=== PATIENT | female | born 1960 | race Hispanic/Latino ===

== ENCOUNTER 2020-04-18 19:45 | Emergency (ER) | payer MEDICARE ==
[2020-04-18 21:15] VITALS: BP 145/93
[2020-04-18 21:39] LABS: Basophils # (Auto) 0.1 K/mm3 (0.0-0.1); Basophils % (Auto) 1.5 % (0.0-1.8); Eosinophils # (Auto) 0.1 K/mm3 (0.0-0.4); Eosinophils % (Auto) 1.7 % (0.0-4.3); Hematocrit 40.1 % (30.3-42.9); Hemoglobin 13.5 gm/dl (10.1-14.3); Lymphocytes # (Auto) 2.3 K/mm3 (1.2-5.4); Mean Corpuscular HGB Conc 34 % (30-34); Mean Corpuscular Volume 78 fl (79-97); Monocytes # (Auto) 0.4 K/mm3 (0.0-0.8); Monocytes % (Auto) 5.8 % (0.0-7.3); Platelet Count 296 K/mm3 (140-440); Red Blood Count 5.14 M/mm3 (3.65-5.03); Red Cell Distribution Width 15.8 % (13.2-15.2)
--- NOTE | 2020-04-18 22:00 | Emergency Department Report ---
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 Patient states that the blurriness has been persistent but intermittent since onset. Patient states that her family were concerned and decided to bring her to the ED for evaluation suspecting that she may be developing another aneurysm and stroke. Patient denies headache, right eye vision loss, dizziness, nausea and vomiting, neck pain, chest pain, shortness of breath, traumatic injury, fever, chills, cough, sore throat, nasal and sinus congestion or numbness and tingling or weakness of upper and lower extremities bilaterally. MD chief complaint: vision change (Blurry right eye) -: Sudden, hour(s) (12) Onset Description: sudden Location: right eye Place: home If Injury: none Eye Symptoms: blurry vision (right) Severity: mild Severity scale (0 -10): 0 Consistency: constant Associated Symptoms: none Treatments Prior to Arrival: none - Related Data Patient Tetanus UTD: Yes Home Medications Medication Instructions Recorded Confirmed Last Taken Gabapentin 300 mg PO TID 06/02/19 06/02/19 Unknown hydroCHLOROthiazide [HCTZ] 25 mg PO QDAY 06/02/19 06/02/19 Unknown Previous Rx's Medication Instructions Recorded Last Taken Type Aspirin EC [Halfprin EC] 81 mg PO QDAY #30 tablet 06/04/19 Unknown Rx AtorvaSTATin [Lipitor] 40 mg PO QHS #30 tablet 06/04/19 Unknown Rx Butalb/Acetamin/Caff 50-325-40 1 tab PO BID PRN #30 tablet 06/04/19 Unknown Rx [Fioricet 50-325-40] levETIRAcetam [Keppra TAB] 500 mg PO BID #60 tablet 06/04/19 Unknown Rx Allergies Allergy/AdvReac Type Severity Reaction Status Date / Time NSAIDS (Non-Steroidal Allergy Bleeding Verified 12/24/14 11:41 Anti-Inflamma Penicillins Allergy Rash Verified 12/24/14 11:41 pregabalin [From Lyrica] Allergy Unknown Verified 12/24/14 11:41 ED Review of Systems ROS: Stated complaint: LOSS OF VISION IN RT EYE Other details as noted in HPI Constitutional: denies: chills, fever Eyes: vision change (Blurry right eye). denies: eye pain, eye discharge ENT: denies: ear pain, throat pain Respiratory: denies: cough, shortness of breath, SOB with exertion, SOB at rest, wheezing Cardiovascular: denies: chest pain, palpitations, edema, syncope, paroxysmal nocturnal dyspnea Endocrine: no symptoms reported Gastrointestinal: denies: abdominal pain, nausea, vomiting, diarrhea Genitourinary: denies: urgency, dysuria, discharge Musculoskeletal: denies: back pain, joint swelling, arthralgia Skin: denies: rash, lesions Neurological: denies: headache, weakness, numbness, paresthesias, confusion, abnormal gait, vertigo Psychiatric: denies: anxiety, depression Hematological/Lymphatic: denies: easy bleeding, easy bruising ED Past Medical Hx - Past Medical History Hx Hypertension: Yes Hx CVA: Yes Hx Arthritis: Yes Hx COPD: Yes Additional medical history: Congenital right arm deformity at the elbow. SCIATICA, pleursy. brain aneursym. Blind Left eye - Surgical History Past Surgical History?: Yes Additional Surgical History: tonsillectomy, x 2, hysterectomy, stomach tumor removed 2000. 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 - Social History Smoking Status: Former Smoker - Medications Home Medications: Home Medications Medication Instructions Recorded Confirmed Last Taken Type Gabapentin 300 mg PO TID 06/02/19 06/02/19 Unknown History hydroCHLOROthiazide [HCTZ] 25 mg PO QDAY 06/02/19 06/02/19 Unknown History Aspirin EC [Halfprin EC] 81 mg PO QDAY #30 tablet 06/04/19 Unknown Rx AtorvaSTATin [Lipitor] 40 mg PO QHS #30 tablet 06/04/19 Unknown Rx Butalb/Acetamin/Caff 50-325-40 1 tab PO BID PRN #30 tablet 06/04/19 Unknown Rx [Fioricet 50-325-40] levETIRAcetam [Keppra TAB] 500 mg PO BID #60 tablet 06/04/19 Unknown Rx ED Physical Exam - General Limitations: No Limitations General appearance: alert, in no apparent distress - Head Head exam: Present: atraumatic, normocephalic, normal inspection - Eye Eye exam: Present: normal appearance, PERRL, EOMI, other (Baseline left eye blindness). Absent: scleral icterus, conjunctival injection, nystagmus, periorbital tenderness Pupils: Present: normal accommodation - ENT ENT exam: Present: normal exam, normal orophraynx, mucous membranes moist, normal external ear exam. Absent: TM's normal bilaterally - Neck Neck exam: Present: normal inspection, full ROM - Respiratory Respiratory exam: Present: normal lung sounds bilaterally. Absent: respiratory distress, wheezes, rales, rhonchi, chest wall tenderness, accessory muscle use, decreased breath sounds - Cardiovascular Cardiovascular Exam: Present: regular rate, normal rhythm, normal heart sounds. Absent: systolic murmur, diastolic murmur, rubs, gallop - GI/Abdominal GI/Abdominal exam: Present: soft, normal bowel sounds. Absent: distended, tenderness, hyperactive bowel sounds, hypoactive bowel sounds - Extremities Exam Extremities exam: Present: normal inspection, full ROM, normal capillary refill, other (Baseline congenital vestigial right arm deformity at the elbow) - Back Exam Back exam: Present: normal inspection, full ROM. Absent: tenderness, CVA tenderness (R), CVA tenderness (L), muscle spasm, paraspinal tenderness, vertebral tenderness - Neurological Exam Neurological exam: Present: alert, oriented X3, CN II-XII intact, normal gait, reflexes normal - Psychiatric Psychiatric exam: Present: normal affect, normal mood - Skin Skin exam: Present: warm, dry, intact, normal color. Absent: rash ED Course Vital Signs 04/18/20 21:13 Temperature 98.9 F Pulse Rate 80 Respiratory 16 Rate Blood Pressure 145/93 O2 Sat by Pulse 97 Oximetry ED Medical Decision Making - Lab Data Result diagrams: 04/18/20 21:24 04/18/20 21:24 - Radiology Data [facility] [address] [place] [address] Cat Scan Report Signed Patient: ROGER MCINTOSH MR#: [id number] 28 : 1960 Acct:[id number] Age/Sex: 59 / F ADM Date: 04/18/20 Loc: ED Attending Dr: Ordering Physician: JUAN MARCUS Date of Service: 04/18/20 Procedure(s): CT head/brain wo con Accession Number(s): [id number] cc: JUAN MARCUS CT HEAD WITHOUT CONTRAST INDICATION / CLINICAL INFORMATION: Blurry vision, right eye. TECHNIQUE: All CT scans at this location are performed using CT dose reduction for ALARA by means of automated exposure control. COMPARISON: CT brain dated 06/02/2019. FINDINGS: HEMORRHAGE: None. EXTRA-AXIAL SPACES: Normal in size and morphology for the patient's age. VENTRICULAR SYSTEM: Normal in size and morphology for the patient's age. CEREBRAL PARENCHYMA: Regions of encephalomalacia within the left frontal and right occipital lobe are again seen. There is ex vacuo dilation of the lateral ventricles. Small chronic lacunar type infarct of the right basal ganglia is again seen. No acute territorial infarct. MIDLINE SHIFT OR HERNIATION: None. CEREBELLUM / BRAINSTEM: No significant abnormality. ORBITS: Normal as visualized. SOFT TISSUES of HEAD: No significant abnormality. CALVARIUM: No significant abnormality. PARANASAL SINUSES / MASTOID AIR CELLS: Normal as visualized. ADDITIONAL FINDINGS: Aneurysm coils are again seen. IMPRESSION: 1. No acute intracranial abnormality. 2. Encephalomalacia within the left frontal lobe, right occipital lobe, and right basal ganglia are compatible with chronic infarcts. 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 Patient states that the blurriness has been persistent but intermittent since onset. Patient states that her family were concerned and decided to bring her to the ED for evaluation suspecting that she may be developing another aneurysm and stroke. In the ED, patient is alert and oriented x3 and is not in distress. Lab test results were reviewed and are all nonactionable. Head CT scan without contrast showed no acute intracranial abnormality. It however showed encephalomalacia within the left frontal lobe, right occipital lobe, and right basal ganglia are compatible with chronic infarcts. Patient was therefore discharged home and advised to follow-up with her primary care physician and was also given a referral to the neurologist Dr. Ye for follow-up and evaluation. Patient was advised return to the ED immediately if symptoms get worse. - Differential Diagnosis Blurry vision, CVA, dizziness, dehydration, [place] Critical care attestation.: If time is entered above; I have spent that time in minutes in the direct care of this critically ill patient, excluding procedure time. ED Disposition Clinical Impression: Blurred vision, right eye Disposition: DC-01 TO HOME OR SELFCARE Is pt being admited?: No Does the pt Need Aspirin: No Condition: Stable Instructions: Blurred Vision, Adult Additional Instructions: THE HEAD CT SCAN W/O CONTRAST SHOWED NO ACUTE INTRACRANIAL ABNORMALITIES OR HEMORRHAGE. THERE WAS NOTED CHRONIC CHANGES FROM PREVIOUS INFARCTS. THEREFORE FOLLOW UP WITH DR. YE, THE NEUROLOGIST IN 3-5 DAYS FOR REEVALUATION. RETURN TO THE ED IMMEDIATELY IF SYMPTOMS GET WORSE. Referrals: HUSSEIN YE MD [Referring] - 3-5 Days Time of Disposition: 23:44 Print Language: [place]
[2020-04-18 22:11] LABS: BUN/Creatinine Ratio 24; Blood Urea Nitrogen 22 mg/dL (7-17); Calcium 9.3 mg/dL (8.4-10.2); Hemolysis Index 7
--- NOTE | 2020-04-18 22:26 | Cat Scan Report ---
CT HEAD WITHOUT CONTRAST INDICATION / CLINICAL INFORMATION: Blurry vision, right eye. TECHNIQUE: All CT scans at this location are performed using CT dose reduction for ALARA by means of automated e xposure control. COMPARISON: CT brain dated 06/02/2019. FINDINGS: HEMORRHAGE: None. EXTRA-AXIAL SPACES: Normal in size and morphology for the patient's age. VENTRICULAR SYSTEM: Normal in size and morphology for the patient's age. CEREBRAL PARENCHYMA: Regions of encephalomalacia within the left frontal and right occipital lobe are again seen. There is ex vacuo dilation of the lateral ventricles. Small chronic lacunar type infarct of the right basal ganglia is again seen. No acute territorial infarct. MIDLINE SHIFT OR HERNIATION: None. CEREBELLUM / BRAINSTEM: No significant abnormality. ORBITS: Normal as visualized. SOFT TISSUES of HEAD: No significant abnormality. CALVARIUM: No significant abnormality. PARANASAL SINUSES / MASTOID AIR CELLS: Normal as visualized. ADDITIONAL FINDINGS: Aneurysm coils are again seen. IMPRESSION: 1. No acute intracranial abnormality. 2. Encephalomalacia within the left frontal lobe, right occipital lobe, and right basal ganglia are c ompatible with chronic infarcts. Signer Name: Ford Verduzco MD Signed: 04/18/2020 10:21 PM Workstation Name: [id number]
== END 2020-04-18 23:55 | disposition home or self-care (01) ==
LOC: ED 19:45
DX: H53.8 Other visual disturbances (principal); I10 Essential (primary) hypertension; M19.91 Primary osteoarthritis, unspecified site; J44.9 Chronic obstructive pulmonary disease, unspecified; Z90.89 Acquired absence of other organs; Z90.710 Acquired absence of both cervix and uterus; Z98.890 Other specified postprocedural states; Z87.891 Personal history of nicotine dependence; Z79.899 Other long term (current) drug therapy; Z88.0 Allergy status to penicillin; Z88.6 Allergy status to analgesic agent; Z88.8 Allergy status to other drugs, medicaments and biological substances
CPT/HCPCS: 36415; 70450; 80048; 85025